=== PATIENT | female | born 1965 | race Two or more races ===

== ENCOUNTER 2019-01-24 19:52 | Emergency (ER) | payer MEDICAID ==
[~2019-01-24] VITALS: Ht 152.4 cm; Wt 86.6 kg
[2019-01-24 20:22] VITALS: Ht 152.4 cm; Wt 86.6 kg
[2019-01-24 21:16] LABS: BASOPHIL % 0.8 % (0-2); PLATELET COUNT 238 x10^3mcL (130-400); RED CELL DISTRIBUTION WIDTH 13.4 % (11.5-14.5)
[2019-01-24 21:21] LABS: CALCIUM 8.6 mg/dL (8.5-10.1); CARBON DIOXIDE 28.3 mmol/L (21-32); CHLORIDE SERUM 105 mmol/L (98-107); CREATININE SERUM 0.5 mg/dL (0.6-1.0); GFR1 > 60 mL/min; GLUCOSE SERUM 93 mg/dL (74-106); POTASSIUM SERUM 3.5 mmol/L (3.5-5.1); SODIUM SERUM 140 mmol/L (136-145)
[2019-01-24 21:25] LABS: ALBUMIN 3.4 g/dL (3.4-5.0); ALKALINE PHOSPHATASE 114 U/L (46-116); ALT/SGPT 22 U/L (14-59); AST/SGOT 11 U/L (15-37); BILIRUBIN TOTAL 0.39 mg/dL (0.20-1.00); LIPASE 233 IU/L (73-393); TOTAL PROTEIN, SERUM 7.5 g/dL (6.4-8.2)
[2019-01-24 22:06] VITALS: BP 149/91
== END 2019-01-24 22:06 | disposition home or self-care (01) ==
LOC: ED 19:52
PROVIDERS: Emergency Medicine
DX: K29.00 Acute gastritis without bleeding (principal); Z90.89 Acquired absence of other organs; Z87.19 Personal history of other diseases of the digestive system
CPT/HCPCS: 36415; Q0092